=== PATIENT | male | born 1950 | race Caucasian/White ===

== ENCOUNTER 2017-10-22 15:36 | Emergency (ER) | END 2017-10-22 18:20 | disposition home or self-care (01) ==

== ENCOUNTER 2018-08-22 09:52 | Inpatient (IN) | payer OTHER ==
[~2018-08-22] VITALS: Ht 170.2 cm; Wt 78.6 kg
[~2018-08-22 09:52] MED LIST: LOSA25TA12 PO
[2018-08-22 09:55] VITALS: Ht 170.2 cm; Wt 78.6 kg
[2018-08-22] MEDS ORDERED: KETOROLAC 15 MG INJ IV STA ×2 (10:12→15:56)
[2018-08-22] MEDS ORDERED: IPRATROPIUM (NEB) 0.5 MG/2.5 ML AMP NEB STA (10:12)
[2018-08-22] MEDS ORDERED: ALBUTEROL 0.083% (NEB) 2.5 MG/3 ML AMP NEB STA (10:12)
[2018-08-22] MEDS ORDERED: LOSA100T15 PO (11:07)
[2018-08-22] MEDS ORDERED: ALBU18HF INHALATION (11:08)
[2018-08-22] MEDS ORDERED: AMLO-147 PO (11:08)
[2018-08-22] MEDS ORDERED: CEFTRIAXONE 1 GM/50 ML (PMX) 50 ML IVPB STA (13:07)
[2018-08-22] MEDS ORDERED: AZITHROMYCIN 500MG/NS (PMX) 250 ML IV STA (13:07)
--- NOTE | 2018-08-22 13:59 | ERD ---
ER Documentation Chief Complaint Chief Complaint cough, sob, chest pain x4 days HPI 67-year-old male who presents the emergency room with approximately 4 days of symptoms including chest pain shortness of breath and cough. The cough is slightly productive. The chest pain is sharp and worse with coughing. Nonpleuritic. No pressure like pain and no exertional pain. Subjective fevers are possibly noted but no documented temperature. Symptoms are moderate currently. ROS All systems reviewed and are negative except as per history of present illness. Medications Home Meds Reported Medications Albuterol Sulfate* (Ventolin HFA*) 18 Gm Hfa.aer.ad, 2 PUFF INHALATION Q4H, #1 INHALER 08/22/18 Amlodipine Besylate* (Amlodipine Besylate*) 10 Mg Tablet, 10 MG PO DAILY, #30 TAB 08/22/18 Losartan Potassium* (Losartan Potassium*) 100 Mg Tablet, 100 MG PO DAILY, TAB 08/22/18 Discontinued Reported Medications Losartan Potassium* (Losartan Potassium*) Unknown Strength Tablet, PO DAILY, TAB 10/22/17 Allergies Allergies: Coded Allergies: No Known Allergy (Unverified , 08/22/18) PMhx/Soc History of Surgery: No Anesthesia Reaction: No Hx Neurological Disorder: No Hx Respiratory Disorders: No Hx Cardiac Disorders: No Hx Psychiatric Problems: No Hx Miscellaneous Medical Probl: Yes (HTN) Hx Alcohol Use: Yes (social drinker) Hx Substance Use: No Hx Tobacco Use: No Smoking Status: Never smoker FmHx Family History: No diabetes Physical Exam Vitals Vital Signs Date Temp Pulse Resp B/P (MAP) Pulse Ox O2 O2 Flow FiO2 Time Delivery Rate 08/22/18 98.2 82 21 132/83 97 Room Air 13:28 (99) 08/22/18 100.0 99 18 135/82 98 Room Air 11:34 (99) 08/22/18 Nasal 3 10:32 Cannula 08/22/18 8.0 10:30 08/22/18 100 20 99 21 10:22 08/22/18 99.2 107 20 168/89 97 09:55 (115) Physical Exam General: Well developed, well nourished, no acute distress Head: Normocephalic, atraumatic. Eyes: Pupils equally reactive, EOM intact ENT: Moist mucous membranes Neck: Supple, no lymphadenopathy Respiratory: Scant wheezing bilaterally, no distress Cardiovascular: RRR, no murmurs, rubs, or gallops Abdominal: Soft, non-tender, non-distended, no peritoneal signs : Deferred MSK: No edema, no unilateral swelling, 5/5 strength Neurologic: Alert and oriented, moving all extremities, normal speech, no focal weakness, no cerebellar signs Skin: No rash Psych: Normal mood Result Diagram: 08/22/18 1032 08/22/18 1032 Results 24 hrs Laboratory Tests Test 08/22/18 10:32 White Blood Count 10.7 10^3/ul Red Blood Count 4.37 10^6/ul Hemoglobin 13.5 g/dl Hematocrit 40.5 % Mean Corpuscular Volume 92.7 fl Mean Corpuscular Hemoglobin 30.9 pg Mean Corpuscular Hemoglobin Concent 33.3 g/dl Red Cell Distribution Width 13.1 % Platelet Count 238 10^3/UL Mean Platelet Volume 9.9 fl Immature Granulocytes % 0.300 % Neutrophils % 73.4 % Lymphocytes % 13.0 % Monocytes % 12.1 % Eosinophils % 0.9 % Basophils % 0.3 % Nucleated Red Blood Cells % 0.0 /100WBC Immature Granulocytes # 0.030 10^3/ul Neutrophils # 7.9 10^3/ul Lymphocytes # 1.4 10^3/ul Monocytes # 1.3 10^3/ul Eosinophils # 0.1 10^3/ul Basophils # 0.0 10^3/ul Nucleated Red Blood Cells # 0.0 10^3/ul Sodium Level 138 mmol/L Potassium Level 3.7 mmol/L Chloride Level 102 mmol/L Carbon Dioxide Level 26 mmol/L Anion Gap 10 Blood Urea Nitrogen 10 mg/dl Creatinine 0.83 mg/dl Est Glomerular Filtrat Rate mL/min > 60 mL/min Glucose Level 178 mg/dl Calcium Level 9.2 mg/dl Troponin I 0.015 ng/ml B-Type Natriuretic Peptide 522 PG/ML Current Medications Medications Dose Sig/Gloria Start Time Status Last (Trade) Ordered Route PRN Stop Time Admin Dose Reason Admin Ketorolac 15 mg ONCE STAT 08/22/18 DC 08/22/18 Tromethamine IV 10:12 08/22/18 10:36 (Toradol) 10:14 Albuterol 2.5 mg ONCE STAT 08/22/18 DC 08/22/18 (Proventil NEB 10:12 08/22/18 10:20 0.083% (Neb)) 10:14 Ipratropium 0.5 mg ONCE STAT 08/22/18 DC 08/22/18 [place] NEB 10:12 08/22/18 10:20 (Atrovent 10:14 0.02% (Neb)) Azithromycin 250 ml @ ONCE STAT 08/22/18 250 mls/hr IV 13:07 08/22/18 14:06 Ceftriaxone 50 ml @ ONCE STAT 08/22/18 DC 08/22/18 Sodium 100 mls/hr IVPB 13:07 08/22/18 13:26 13:36 Ondansetron 4 mg ER BRIDGE 08/22/18 HCl (Zofran PRN IV 14:00 08/23/18 Inj) NAUSEA/VOMITI 13:59 NG 650 mg ER BRIDGE 08/22/18 Acetaminophen PRN PO 14:00 08/23/18 (Tylenol .MILD PAIN 13:59 Tab) 1-3 OR TEMP Procedures/MDM EKG, MONITORS, & DIAGNOSTIC IMAGING: EKG: I reviewed and interpreted a 12-lead EKG. Rhythm: Normal sinus rhythm ST Changes: No contiguous ST segment elevations T waves: No contiguous T wave inversions Impression:Left bundle branch block, no baseline CXR IMPRESSION: Mildly increased left mid lung infiltrate concerning for developing pneumonia. RPTAT: AADD LAB INTERPRETATION: I reviewed the laboratory testing and it shows no evidence of acute process MEDICAL DECISION MAKING: The patient presents with cough congestion and shortness of breath. He is wheezing on exam. The patient's presentation is concerning for possible viral versus bacterial lower respiratory tract infection and/or pneumonia. Lower concern for cardiac etiology though the patient has a left bundle branch block of unclear duration. No baseline for measurement. ER COURSE: * Diagnostic imaging is concerning for pneumonia. The patient still has slight increased work of breathing but is otherwise comfortable. The patient only has 1 out of 4 Sirs criteria. This is not consistent with sepsis. Blood cultures prior to ceftriaxone and azithromycin. Given the patient's age, left bundle branch block and comorbidities inpatient hospitalization is likely ne cessary. CONSULTATION: None DISPOSITION PLAN: Accepting care team and consultations: I discussed the current laboratory data, diagnostic imaging and emergency care provided. Admitting team: Dr. Bar Admitting team indication: Insurance directed Departure Diagnosis: Primary Impression: Community acquired pneumonia Laterality: unspecified laterality Qualified Codes: J18.9 - Pneumonia, unspecified organism Additional Impression: Left bundle branch block Condition: JOY Summesr MD Aug 22, 2018 13:59
[2018-08-22] MEDS ORDERED: ONDANSETRON 4 MG INJ IV PRN ×2 (14:00→16:30)
[2018-08-22] MEDS ORDERED: ACETAMINOPHEN 325 MG TAB PO PRN ×2 (14:00→16:30)
[2018-08-22] MEDS ORDERED: ALBUTEROL/IPRATROPIUM (NEB) 3 ML AMP HHN STA (15:55)
--- NOTE | 2018-08-22 15:58 | QN ---
Documentation Comment pt seen and examined MONIKA BERRIOS MD Aug 22, 2018 15:58
[2018-08-22] MEDS ORDERED: METHYLPREDNISOLONE 125 MG INJ IV ONE (16:00)
[2018-08-22] MEDS: ENOXAPARIN 40 MG/0.4 ML SYG SC SCH (16:20)
[2018-08-22] MEDS ORDERED: NACL 0.9% 3 ML SYG IV SCH (16:30)
[2018-08-22] MEDS ORDERED: ASPIRIN 81 MG TAB PO ONE (16:30)
[2018-08-22] MEDS ORDERED: MAGNESIUM HYDROXIDE 30ML CUP PO PRN (16:30)
[2018-08-22] MEDS ORDERED: HYDROCODONE/APAP (5/325) TAB PO PRN (16:30)
[2018-08-22] MEDS ORDERED: DOCUSATE SODIUM 100 MG CAP PO PRN (16:30)
--- NOTE | 2018-08-22 19:36 | HP ---
DATE OF ADMISSION: 08/22/2018 REASON FOR ADMISSION: Shortness of breath, cough, chest pain for last 4 days. HISTORY OF PRESENTING ILLNESS: This is a 67-year-old male with a past medical history of hypertensio n, obesity, presented to the emergency department after having a left-sided chest pain, shortness of breath and cough for the past 4 to 5 days. According to the patient, he started noticing some interm ittent left sharp chest pain for 15 days. 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 He has been having good exercise tolerance; however, for the last 15 days, he was noticin g every time he was breathing, taking a breath, he was having some intermittent left chest pains. Pa in would last for a few minutes going through the throat and to the back. The patient started feelin g cough, sore throat, shortness of breath, which was progressively getting worse and also with cough productive in nature which made him come to the emergency department. According to him, the whole evita dy has been hurting. The patient was also having subjective fevers at home. Denies any orthopnea, P ND, any lower extremity edema. The patient only takes Losartan at home. The patient was advised by the PCP to have a cardiology checkup. The patient denies any orthopnea, PND, any lower extremity aleksandar ma. On arrival to ED, vital signs show temperature 100.0, pulse 100, respirations 18, blood pressure 135/82, saturating 97% on 3 liters. The patient had labs, showed BMP within normal limit. BNP of 5 22. White count 10.7, hemoglobin 13.5, platelet count 238. Had a chest x-ray that showed mild incre ased left lung infiltrate for developing pneumonia. EKG showed left bundle branch block and patient received Toradol, Rocephin, azithromycin, albuterol, Atrovent and was admitted for further management . PAST MEDICAL HISTORY: Hypertension. MEDICATIONS: Taking at home Losartan. PAST SURGICAL HISTORY: None. SOCIAL HISTORY: Denies any history of smoking. Denies any history of alcohol, any drug use. Chastity guerrier lives at home with the family. FAMILY HISTORY: Significant for coronary artery disease in the father and the mother who in the age of 80s. REVIEW OF SYSTEMS: The patient complained of generalized body aches, shortness of breath, cough. So me left intermittent chest pain. Denies any orthopnea, PND, any lower extremity edema. Denies any h eadache, any blurry vision. Intermittently having some right low back pain. Denies any orthopnea, P ND, any lower extremity edema. Denies any urinary symptoms. PHYSICAL EXAMINATION: VITAL SIGNS: Temperature 100.0, pulse 99, respirations 18, blood pressure 135/82, saturating 98% on 3 liters. GENERAL: The patient is awake, alert, oriented, appears to be in mild distress secondary to respirat ory distress. HEENT: Normocephalic, atraumatic. Morbidly obese. Pupils round and reactive. NECK: Supple, no JVD. CHEST: Lungs wheezing, rhonchi. End expiratory rhonchi scattered appreciated. HEART: Regular rate and rhythm. No murmur, rub or gallop. ABDOMEN: Soft, distended, positive bowel sounds. EXTREMITIES: No edema. NEUROLOGIC: Nonfocal. DIAGNOSTIC DATA: White count is 10.7, hemoglobin 13.5, platelet count 238, BUN of 10, creatinine 0.8 3. EKG showed left bundle branch block. Chest x-ray showed mildly increased left basal infiltrate c oncerning for developing pneumonia. ASSESSMENT AND PLAN: This is a 67-year-old male who presented with: 1. Shortness of breath, weakness, fevers, cough, likely secondary to developing a left-sided pneumon ia/bronchospasm. 2. Chest pain could be secondary related to pneumonia; however, the patient also has a left bundle b ranch on EKG. No prior history. 3. Hypertension, controlled. 4. Obesity. 5. History of questionable asthma. PLAN: At this period of time, the patient will be admitted to [facility]. The patient will be on nebs, st eroids and also on antibiotics around the clock. We will also get serial EKG, troponin, echo. Cardi ology will be consulted. The patient will also be started on aspirin and statin. We will get a lipi d panel. Rest of the treatment will depend on the patient's hospitalization course. Dictated By: MONIKA MENDOZA/MARYLOU Conf#: [id number] DID#: [id number]
[2018-08-22 19:40] VITALS: PULSE 101
[2018-08-22 19:58] VITALS: BP 159/88; PULSE 98; RESP 19
[2018-08-22 20:00] VITALS: PULSE 97
[2018-08-22] MEDS: METHYLPREDNISOLONE 40 MG INJ IV SCH (21:56)
[2018-08-23] VITALS (10 sets, daily range): BP systolic 95–172; BP diastolic 75–94; PULSE 66–122; RESP 18–20
[2018-08-23] MEDS: ALBUTEROL/IPRATROPIUM (NEB) 3 ML AMP HHN SCH ×5 (04:16→19:42)
[2018-08-23] MEDS ORDERED: hydrALAzine 20 MG INJ IV PRN (04:30)
[2018-08-23] MEDS: PANTOPRAZOLE (EC) 40 MG TAB PO SCH (05:32)
[2018-08-23] MEDS: METHYLPREDNISOLONE 40 MG INJ IV SCH ×3 (05:32→21:05)
[2018-08-23] MEDS: ASPIRIN (EC) 81 MG TAB PO SCH (08:11)
[2018-08-23] MEDS: CEFTRIAXONE 1 GM/50 ML (PMX) 50 ML IVPB SCH (08:11)
[2018-08-23] MEDS: ENOXAPARIN 40 MG/0.4 ML SYG SC SCH (08:24)
[2018-08-23] MEDS: AZITHROMYCIN 500MG/NS (PMX) 250 ML IVPB SCH (10:12)
--- NOTE | 2018-08-23 13:57 | PN ---
Date/Time of Note Date/Time of Note DATE: 08/23/18 TIME: 13:55 Assessment/Plan VTE Prophylaxis Risk score (from Ns)>0 risk: 2 SCD applied (from Ns): Yes Pharmacological prophylaxis: NA/contraindicated Pharm contraindication: low risk/ambulating Lines/Catheters IV [facility] [place] Urinary Cath still in place: No Assessment/Plan Assessment/Plan PLAN: This is a 67-year-old male who presented with: 1. Shortness of breath, weakness, fevers, cough, likely secondary to developing a left-sided pneumonia/bronchospasm. 2. Chest pain could be secondary related to pneumonia; however, the patient also has a left bundle branch on EKG. No prior history. 3. Hypertension, controlled. 4. Obesity. 5. History of questionable asthma. 6 SIRS seondary to #1 7 Hypoxia sec to#1 Plan clinically improved today -Continue with nebs. -Decrease Solu-Medrol -Continue with Rocephin/azithromycin -Urine culture -Echo pending -Continue with aspirin statin -Pending cardiology consult Result Diagram: 08/22/18 1032 08/23/18 0708 Results 24hrs Laboratory Tests Test 08/22/18 16:00 08/22/18 16:15 08/22/18 21:51 08/23/18 07:08 Blood Gas Blood arterial Specimen Source Arterial Blood 08/22/2018 4:55:05 Date Drawn PM Arterial Blood 7.453 H pH (Temp corrected) Arterial Blood 34.2 L pCO2 (Temp correct) Arterial Blood 73.0 L pO2 (Temp corrected) Arterial Blood 23.4 HCO3 Arterial Blood 0.1 Base Excess Arterial Blood 95.5 Oxygen Saturatio n Tyler Test ACCEPTAB Arterial Blood Right Radial Gas Puncture Site Arterial 0.2 Blood Carboxyhem oglobin Arterial Blood 0.3 Methemoglobin Blood Gas A-a O2 35.8 H Differential Oxyhemoglobin 95.0 Percent Blood Gas 37.0 Temperature Blood Gas ROOM AIR Modality FiO2 21.0 Blood Gas MDA Notified Whom Blood Gas 08/22/2018 4:58:38 Notified Time PM Urine Color MELYSSA Urine Clarity SLIGHTLY CLOUDY A Urine pH 5.0 Urine Specific 1.032 H Eldred Urine Ketones TRACE A Urine Nitrite NEGATIVE Urine Bilirubin 1+ H Urine 2+ H Urobilinogen Urine Leukocyte NEGATIVE Esterase Urine 5 Microscopic RBC Urine 2 Microscopic WBC Urine Bacteria FEW A Urine Mucus MANY A Urine Hemoglobin NEGATIVE Urine Glucose NEGATIVE Urine Total 2+ H Protein Creatine Kinase 707 H 747 H Creatine Kinase 0.3 0.3 Index Creatinine 1.81 2.27 Kinase MB (Mass) Troponin I < 0.012 0.013 Sodium Level 139 Potassium Level 3.7 Chloride Level 102 Carbon Dioxide 26 Level Anion Gap 11 Blood Urea 16 Nitrogen Creatinine 0.71 Est Glomerular > 60 Filtrat Rate mL/min Glucose Level 201 Hemoglobin A1c 6.3 H Calcium Level 9.5 Phosphorus Level 4.0 Magnesium Level 2.0 Triglycerides 144 Level Cholesterol 160 Level LDL Cholesterol, 97 Calculated HDL Cholesterol 34 Cholesterol/HDL 4.7 Ratio Free Thyroxine 2.73 Index Thyroxine (T4) 6.7 Triiodothyronine 40.7 H (T3) Uptake Subjective 24 Hr Interval Summary Free Text/Dictation Feels better today. Still has some lower abdomen pain Exam/Review of Systems Exam Vitals Vital Signs Date Temp Pulse Resp B/P (MAP) Pulse Ox O2 O2 Flow FiO2 Time Delivery Rate 08/23/18 86 18 96 Nasal 2.0 13:49 Cannula 08/23/18 97.8 164/90 11:54 (114) 08/23/18 21 04:16 Exam GENERAL: The patient is awake, alert, oriented, appears to be in mild distress secondary to respiratory distress. HEENT: Normocephalic, atraumatic. Morbidly obese. Pupils round and reactive. NECK: Supple, no JVD. CHEST: Lungs wheezing, rhonchi. End expiratory rhonchi much less than yesterday HEART: Regular rate and rhythm. No murmur, rub or gallop. ABDOMEN: Soft, distended, positive bowel sounds. EXTREMITIES: No edema. NEUROLOGIC: Nonfocal. Results Results 24hrs Laboratory Tests Test 08/22/18 16:00 08/22/18 16:15 08/22/18 21:51 08/23/18 07:08 Blood Gas Blood arterial Specimen Source Arterial Blood 08/22/2018 4:55:05 Date Drawn PM Arterial Blood 7.453 H pH (Temp corrected) Arterial Blood 34.2 L pCO2 (Temp correct) Arterial Blood 73.0 L pO2 (Temp corrected) Arterial Blood 23.4 HCO3 Arterial Blood 0.1 Base Excess Arterial Blood 95.5 Oxygen Saturatio n Tyler Test ACCEPTAB Arterial Blood Right Radial Gas Puncture Site Arterial 0.2 Blood Carboxyhem oglobin Arterial Blood 0.3 Methemoglobin Blood Gas A-a O2 35.8 H Differential Oxyhemoglobin 95.0 Percent Blood Gas 37.0 Temperature Blood Gas ROOM AIR Modality FiO2 21.0 Blood Gas MDA Notified Whom Blood Gas 08/22/2018 4:58:38 Notified Time PM Urine Color MELYSSA Urine Clarity SLIGHTLY CLOUDY A Urine pH 5.0 Urine Specific 1.032 H Eldred Urine Ketones TRACE A Urine Nitrite NEGATIVE Urine Bilirubin 1+ H Urine 2+ H Urobilinogen Urine Leukocyte NEGATIVE Esterase Urine 5 Microscopic RBC Urine 2 Microscopic WBC Urine Bacteria FEW A Urine Mucus MANY A Urine Hemoglobin NEGATIVE Urine Glucose NEGATIVE Urine Total 2+ H Protein Creatine Kinase 707 H 747 H Creatine Kinase 0.3 0.3 Index Creatinine 1.81 2.27 Kinase MB (Mass) Troponin I < 0.012 0.013 Sodium Level 139 Potassium Level 3.7 Chloride Level 102 Carbon Dioxide 26 Level Anion Gap 11 Blood Urea 16 Nitrogen Creatinine 0.71 Est Glomerular > 60 Filtrat Rate mL/min Glucose Level 201 Hemoglobin A1c 6.3 H Calcium Level 9.5 Phosphorus Level 4.0 Magnesium Level 2.0 Triglycerides 144 Level Cholesterol 160 Level LDL Cholesterol, 97 Calculated HDL Cholesterol 34 Cholesterol/HDL 4.7 Ratio Free Thyroxine 2.73 Index Thyroxine (T4) 6.7 Triiodothyronine 40.7 H (T3) Uptake Medications Medication Current Medications IV Flush (NS 3 ml) 3 ml PER PROTOCOL IV ; Start 08/22/18 at 16:30 Ondansetron HCl (Zofran Inj) 4 mg Q6H PRN IV NAUSEA/VOMITING; Start 08/22/18 at 16:30 Acetaminophen (Tylenol Tab) 650 mg Q6H PRN PO .PAIN 1-3 OR TEMP; Start 08/22/18 at 16:30 Acetaminophen/ Hydrocodone Bitart ([place] (5/325)) 1 tab Q6H PRN PO .MOD PAIN 4- 6 Last administered on 08/23/18at 00:26; Admin Dose 1 TAB; Start 08/22/18 at 16:30 Docusate Sodium (Colace) 100 mg Q12H PRN PO .CONSTIPATION; Start 08/22/18 at 16:30 Magnesium Hydroxide (Milk Of Mag) 30 ml DAILY PRN PO .CONSTIPATION; Start 08/22/18 at 16:30 Pantoprazole (Protonix Tab) 40 mg DAILY@06 PO Last administered on 08/23/18 05:32; Admin Dose 40 MG; Start 08/23/18 at 06:00 Enoxaparin Sodium (Lovenox) 40 mg DAILY SC Last administered on 08/23/18 08:24; Admin Dose 40 MG; Start 08/22/18 at 16:30 Ceftriaxone Sodium 50 ml @ 100 mls/hr DAILY IVPB Last administered on 08/23/18 08:11; Admin Dose 100 MLS/HR; Start 08/23/18 at 09:00 Azithromycin 250 ml @ 250 mls/hr DAILY IVPB Last administered on 08/23/18 10:12; Admin Dose 250 MLS/HR; Start 08/23/18 at 09:00 Methylprednisolone Sodium Succinate (Solu-Medrol) 40 mg Q8 IV Last administered on 08/23/18 05:32; Admin Dose 40 MG; Start 08/22/18 at 22:00 Aspirin (Halfprin) 81 mg DAILY PO Last administered on 08/23/18 08:11; Admin Dose 81 MG; Start 08/23/18 at 09:00 Albuterol/ Ipratropium (Duoneb) 3 ml Q4H RESP THERAPY HHN Last administered on 08/23/18 13:49; Admin Dose 3 ML; Start 08/23/18 at 05:00 Hydralazine HCl (Apresoline) 5 mg Q4H PRN IV ELEVATED SYSTOLIC BP; Start 08/23/18 at 04:30 MONIKA BERRIOS MD Aug 23, 2018 13:57
[2018-08-23] MEDS ORDERED: NITROGLYCERIN (SL) 0.4 MG TAB SL PRN (15:30)
--- NOTE | 2018-08-23 16:28 | RADRPT ---
Echocardiogram Report Patient Name: BOBBY TORREPatient ID: [id number] : 1950 (67y 11m)Study Date: 08/23/2018 8:19:48 AM Gender: MAccession #: [id number] Tech: LE Location: [facility] Ref.Physician: MONIKA BERRIOS Height(Cm): BSA: Weight(Kg): Quality: GoodOrder Physician: MONIKA BERRIOS Account #: Procedures: Echocardiographic Report: Transthoracic echocardiogram with complete 2D, M-Mode, and doppler examination. Indications: Abnormal EKG. Measurements: 2D/M Mode Doppler Measurement Value Normal Range Measurement Value Normal Range LVIDd 2D 4.9 [ 4.2 - 5.8 ] cm AV Mean Mathew 1.1 [ 70.0 - 90.0 ] cm/sec LVIDs 2D 3.5 [ 2.5 - 4.0 ] cm AV Mean PG 5.0 [ 2.0 - 4.0 ] mmHg LVPWd 2D 1.1 [ 0.6 - 1.0 ] cm AV Peak Mathew 1.5 [ 100.0 - 170.0 ] cm/sec IVSd 2D 1.1 [ 0.6 - 1.0 ] cm AV Peak PG 9.0 [ 2.0 - 9.0 ] mmHg EF 2D 55.1 [ 52.0 - 72.0 ] percent AV VTI 29.0 cm LVOT Diam 2.0 [ 2.3 - 2.9 ] cm LVOT Peak Mathew 1.1 [ 70.0 - 110.0 ] cm/sec LVOT Peak PG 5.0 [ 2.0 - 6.0 ] mmHg MV E Peak Mathew 0.7 [ 60.0 - 130.0 ] cm/sec MV A Peak Mathew 1.0 [ 100.0 - 120.0 ] cm/sec MV E/A 0.7 [ 0.8 - 1.5 ] ratio MV Decel Time 296 [ 104 - 258 ] msec Lat E` Mathew 0.1 [ 10.0 - 15.0 ] cm/sec Lateral E/E` 11.5 [ 1.0 - 2.0 ] ratio Med E` Mathew 0.1 cm/sec MV E/A 0.7 [ 0.8 - 1.5 ] ratio TR Peak Mathew 2.6 [ 100.0 - 280.0 ] cm/sec TR Peak PG 27.0 mmHg PV Peak Mathew 0.8 [ 40.0 - 80.0 ] cm/sec PV Peak PG 3.0 mmHg Findings: Left Ventricle: Lower limits of normal systolic function. Normal left ventricular cavity size. Normal left ventricular wall thickness. Ejection fraction is visually estimated at 50-55 %. Tissue Doppler/Mitral Doppler indices are consistent with impaired relaxation (Stage I diastolic dysfunction). Right Ventricle: Normal right ventricular size. Normal right ventricular systolic function. Left Atrium: The left atrium is normal in size. Right Atrium: The right atrium is normal in size. Mitral Valve: Normal appearance of the mitral valve. Mild to moderate mitral valve regurgitation. Aortic Valve: Normal appearance of the aortic valve. No significant aortic stenosis or insufficiency. Tricuspid Valve: Normal appearance of the tricuspid valve. The estimated Peak RVSP is 30 mmHg. There is trace tricuspid regurgitation. Pulmonic Valve: Normal pulmonic valve appearance. There is trace pulmonic regurgitation. Pericardium: Normal pericardium with no significant pericardial effusion. Aorta: Normal aortic root. IVC: Normal size and normal respiratory collapse consistent with normal right atrial pressure. Conclusions: Lower limits of normal systolic function. Normal left ventricular cavity size. Normal left ventricular wall thickness. Ejection fraction is visually estimated at 50-55 %. Tissue Doppler/Mitral Doppler indices are consistent with impaired relaxation (Stage I diastolic dysfunction). Normal appearance of the mitral valve. Mild to moderate mitral valve regurgitation. Normal appearance of the tricuspid valve. The estimated Peak RVSP is 30 mmHg. There is trace tricuspid regurgitation. Normal pulmonic valve appearance. There is trace pulmonic regurgitation. n. Electronically Signed By: Leander Reeves 2018-08-23 16:28:17 PDT
--- NOTE | 2018-08-23 16:35 | RADRPT ---
Vent Rate: 67 bpm RR Interval: 896 msec MN Interval: 191 msec QRS Duration: 160 msec QT Interval: 458 msec QTC Interval: 484 msec P-R-T [place]: 68 - 44 - 125 degrees Sinus rhythm...normal P axis, V-rate 50- 99 Left bundle branch block...QRSd>120, broad/notched R ST elevation secondary to IVCD...Multiple VCG criteria Electronically Signed By: Leander Reeves
--- NOTE | 2018-08-23 20:25 | CONS ---
DATE OF ADMISSION: 08/22/2018 DATE OF CONSULTATION: 08/23/2018 REASON FOR CONSULTATION: Chest pain, left bundle branch block, assess for acute coronary syndrome. REQUESTING PHYSICIAN: Dr. Mer Bar. HISTORY OF PRESENT ILLNESS: Mr. Alysha Solano is a 67-year-old male with history of hypertension, obesity, who presented with complaints of shortness of breath ongoing for 15 days perpateint with associated cough which has been dry for the last 3 days and additionally some intermittent left-sided chest pain, both at rest but also worse with ambulation described as a sharp pain. Upon arrival, temperature 99.2, blood pressure 160/89, pulse 107/20, sat 97%. The patient's labs were notable for sodium 138, potassium 3.7, creatinine of 0.83. BNP of 522. Additionally, the patient had a positive UA. The patient's chest x-ray revealed mild increased left mid lung infiltrate concerning for developing pneumonia. The patient's electrocardiogram revealed left bundle branch block, secondary repolarization abnormalities. The patient subsequently has been admitted to the floor and since admit to the floor continues to have cough. The patient was started on ceftriaxone and azithromycin given aspirin for steroids, bronchodilators. The patient has had a total of 3 negative troponins, ruling out acute myocardial infarction. PAST MEDICAL HISTORY: As above in HPI. MEDICATIONS CURRENTLY IN HOSPITAL: 1. Ceftriaxone. 2. Azithromycin. 3. Aspirin 81 mg daily. 4. Protonix 40 mg daily. 5. DuoNeb. 6. Hydralazine IV push p.r.n. 7. Solu-Medrol 40 mg IV q.8. 8. Zofran p.r.n. 9. Tylenol p.r.n. 10. Atkins p.r.n. 11. Colace p.r.n. 12. Milk of magnesia. 13. Lovenox subcutaneously daily. ALLERGIES: NO KNOWN DRUG ALLERGIES. SOCIAL HISTORY: No current tobacco, social ETOH, no illicit drug use. FAMILY HISTORY: No history of sudden cardiac or early CAD. REVIEW OF SYSTEMS: As above in HPI. CONSTITUTIONAL: No fevers, chills. PULMONARY: Positive shortness of breath, positive cough. CARDIOVASCULAR: Intermittent chest pain. GASTROINTESTINAL: No vomiting. GENITOURINARY: No hematuria. MUSCULOSKELETAL: Degenerative joint disease. PSYCHIATRIC: The patient denies depression. NEUROLOGIC: No documented history of CVA. PHYSICAL EXAMINATION VITAL SIGNS: Temperature 97.7, blood pressure 144/75, pulse 100, respiratory rate 20, satting 97%. GENERAL: The patient is alert, awake, complaining of cough. NECK: JVP approximately 8 cm water. CHEST: Mild expiratory wheezes. HEART: Regular rate and rhythm. Normal S1, S2, I/ systolic murmur, nondisplaced PMI. ABDOMEN: Positive bowel sounds, soft. EXTREMITIES: No significant pitting edema, 1+ pulses bilateral posterior tibial. LABORATORY DATA: Most recently from today, sodium 139, potassium 3.7, creatinine 0.7, BUN 16, LDL 97, HDL 34. White blood cell count of 10.7 from the 4th, hemoglobin 13.5, platelet count 238. IMAGING STUDIES: As above in HPI with chest x-ray from today revealing calcified aorta consistent with atherosclerotic disease, mild degenerative changes in thoracic spine, improving left mid lung infiltrate and atelectasis. ELECTROCARDIOGRAM: Reveals a sinus rhythm, left bundle block secondary to repolarization abnormalities. IMPRESSION: 1. Chest pain, assess for acute coronary syndrome. 2. Left bundle branch block. Assess for acute coronary syndrome. 3. Hypertension, uncontrolled, at this time labile. 4. Upper respiratory infection with probable pneumonia. 5. Anemia, mild. RECOMMENDATIONS: 1. At this time, we would maintain the patient on telemetry monitoring to follow rhythm and rate control closely. 2. We would continue the patient's current aspirin for prophylaxis against cardiovascular events. 3. Would place patient on standing antihypertensives to improve the patient's systolic blood pressure control. 4. We will check a 2D echo for this patient's ejection fraction, wall motion, rule out any major valve abnormalities. 5. Continue the patient's baseline steroids, bronchodilators and antibiotics and follow up culture data including likely sputum culture to be checked. 5. Follow up the patient's blood culture data. 6. The patient had negative troponins x3. Does have intermittent chest pain and will additionally place the patient in for a cardiac stress test to take place first thing in the morning to further assess possibility of significant obstructive coronary artery disease lending to symptoms of chest pain and left bundle branch block findings on EKG. Thank you for allowing me to take part in the care of this patient. I will continue to follow him very closely with you with further recommendations to be made as the patient progresses through his inpatient hospital clinical course. Dictated By: ELENO ANN/MARYLOU Conf#: [id number] DID#: [id number] CC: MER BAR;*EndCC* MTDD
[2018-08-23] MEDS: NIFEdipine (XL) 30 MG TAB PO SCH (21:05)
[2018-08-24] VITALS (11 sets, daily range): BP systolic 128–151; BP diastolic 69–81; PULSE 19–99; RESP 18–20
[2018-08-24] MEDS: ALBUTEROL/IPRATROPIUM (NEB) 3 ML AMP HHN SCH ×6 (01:07→20:09)
[2018-08-24] MEDS: GUAIFENESIN/DM 5ML CUP PO PRN ×2 (03:04→21:36)
[2018-08-24] MEDS: PANTOPRAZOLE (EC) 40 MG TAB PO SCH (05:52)
[2018-08-24] MEDS: METHYLPREDNISOLONE 40 MG INJ IV SCH ×3 (05:52→21:36)
[2018-08-24] MEDS: ASPIRIN (EC) 81 MG TAB PO SCH (08:34)
[2018-08-24] MEDS: CEFTRIAXONE 1 GM/50 ML (PMX) 50 ML IVPB SCH (08:34)
[2018-08-24] MEDS: NIFEdipine (XL) 30 MG TAB PO SCH ×2 (08:35→21:36)
[2018-08-24] MEDS: ENOXAPARIN 40 MG/0.4 ML SYG SC SCH (08:46)
[2018-08-24] MEDS: AZITHROMYCIN 500MG/NS (PMX) 250 ML IVPB SCH (09:47)
[2018-08-24] MEDS ORDERED: REGADENOSON 0.4 MG/5 ML SYG ONE (10:43)
--- NOTE | 2018-08-24 11:37 | CONS ---
Assessment/Plan Assessment/Plan Hospital Course (Demo Recall) IMPRESSION: 1. Chest pain, assess for acute coronary syndrome. 2. Left bundle branch block. Assess for acute coronary syndrome. 3. Hypertension, uncontrolled, at this time labile. 4. Upper respiratory infection with probable pneumonia. 5. Anemia, mild. Recc: -Tele -Continue procardia XL -Continue asa -Contiinue steroids/bronchodilators -Lexiscan stress test today Consultation Date/Type/Reason Admit Date/Time Aug 22, 2018 at 13:48 Initial Consult Date 08/24/18 Type of Consult Cardiology Reason for Consultation Chest pain Requesting Provider: MONIKA BERRIOS MD Date/Time of Note DATE: 08/24/18 TIME: 11:32 Exam/Review of Systems Vital Signs Vitals Vital Signs Date Temp Pulse Resp B/P (MAP) Pulse Ox O2 O2 Flow FiO2 Time Delivery Rate 08/24/18 97 2.0 09:12 08/24/18 82 16 Nasal 09:11 Cannula 08/24/18 98.1 136/72 07:36 (93) 08/24/18 28 04:33 Intake and Output 08/23/18 08/23/18 08/24/18 1515:00 23:00 07:00 IntakeIntake Total 50 ml 1210 ml OutputOutput Total 300 ml BalanceBalance 50 ml 910 ml Exam Exam Review of Systems: CONSTITUTIONAL: No fevers, chills. PULMONARY: No sob CARDIOVASCULAR:intermittent chest pain GASTROINTESTINAL: No nausea/vomiting. GENITOURINARY: No hematuria/dysuria. MUSCULOSKELETAL: No myagias/arthalgias. PSYCHIATRIC: The patient denies depression. NEUROLOGIC: No weakness Constitutional: alert, oriented Psych: no complaints Head: normocephalic ENMT: mucosa pink and moist Neck: supple, jvd (9 cm water) Respiratory: diminished breath sounds Cardiovascular: regular rate and rhythm Gastrointestinal: soft, non-tender Musculoskeletal: muscle tone (normal) Extremities: edema (none) Neurological: other (No focal deficits) Labs Result Diagram: 08/24/18 0634 08/23/18 0708 Results 24hrs Laboratory Tests Test 08/24/18 06:34 White Blood Count 17.9 #H Red Blood Count 4.37 L Hemoglobin 13.7 L Hematocrit 41.5 L Mean Corpuscular Volume 95.0 Mean Corpuscular Hemoglobin 31.4 Mean Corpuscular Hemoglobin Concent 33.0 Red Cell Distribution Width 13.2 Platelet Count 350 # Mean Platelet Volume 10.3 Immature Granulocytes % 0.400 Neutrophils % 86.2 H Lymphocytes % 8.7 L Monocytes % 4.6 Eosinophils % 0.0 Basophils % 0.1 Nucleated Red Blood Cells % 0.0 Immature Granulocytes # 0.080 H Neutrophils # 15.4 H Lymphocytes # 1.6 Monocytes # 0.8 Eosinophils # 0.0 Basophils # 0.0 Nucleated Red Blood Cells # 0.0 Troponin I < 0.012 Triglycerides Level 140 Cholesterol Level 192 LDL Cholesterol, Calculated 123 HDL Cholesterol 41 Cholesterol/HDL Ratio 4.6 Medications Medications Current Medications IV Flush (NS 3 ml) 3 ml PER PROTOCOL IV ; Start 08/22/18 at 16:30 Ondansetron HCl (Zofran Inj) 4 mg Q6H PRN IV NAUSEA/VOMITING; Start 08/22/18 at 16:30 Acetaminophen (Tylenol Tab) 650 mg Q6H PRN PO .PAIN 1-3 OR TEMP; Start 08/22/18 at 16:30 Acetaminophen/ Hydrocodone Bitart ([place] (5/325)) 1 tab Q6H PRN PO .MOD PAIN 4- 6 Last administered on 08/23/18at 00:26; Admin Dose 1 TAB; Start 08/22/18 at 16:30 Docusate Sodium (Colace) 100 mg Q12H PRN PO .CONSTIPATION; Start 08/22/18 at 16:30 Magnesium Hydroxide (Milk Of Mag) 30 ml DAILY PRN PO .CONSTIPATION; Start 08/22/18 at 16:30 Pantoprazole (Protonix Tab) 40 mg DAILY@06 PO Last administered on 08/24/18at 05:52; Admin Dose 40 MG; Start 08/23/18 at 06:00 Enoxaparin Sodium (Lovenox) 40 mg DAILY SC Last administered on 08/24/18 08:46; Admin Dose 40 MG; Start 08/22/18 at 16:30 Ceftriaxone Sodium 50 ml @ 100 mls/hr DAILY IVPB Last administered on 08/24/18at 08:34; Admin Dose 100 MLS/HR; Start 08/23/18 at 09:00 Azithromycin 250 ml @ 250 mls/hr DAILY IVPB Last administered on 08/24/18at 09:47; Admin Dose 250 MLS/HR; Start 08/23/18 at 09:00 Methylprednisolone Sodium Succinate (Solu-Medrol) 40 mg Q8 IV Last administered on 08/24/18 05:52; Admin Dose 40 MG; Start 08/22/18 at 22:00 Aspirin (Halfprin) 81 mg DAILY PO Last administered on 08/24/18 08:34; Admin Dose 81 MG; Start 08/23/18 at 09:00 Albuterol/ Ipratropium (Duoneb) 3 ml Q4H RESP THERAPY HHN Last administered on 08/24/18 09:08; Admin Dose 3 ML; Start 08/23/18 at 05:00 Hydralazine HCl (Apresoline) 5 mg Q4H PRN IV ELEVATED SYSTOLIC BP; Start 08/23/18 at 04:30 Guaifenesin/ Dextromethorphan (Robitussin Dm Liquid Cup) 10 ml Q4H PRN PO COUGH Last administered on 08/24/18at 03:04; Admin Dose 10 ML; Start 08/23/18 at 15:00 Nifedipine (Procardia Xl) 30 mg BID PO Last administered on 08/24/18at 08:35; Admin Dose 30 MG; Start 08/23/18 at 21:00 Nitroglycerin (Nitroglycerin (Sl Tab) 0.4 Mg) 1 tab Q5M PRN SL ANGINA; Start 08/23/18 at 15:30 ELENO MALLOY Aug 24, 2018 11:37
--- NOTE | 2018-08-24 14:22 | RADRPT ---
Vent Rate: 83 bpm RR Interval: 724 msec ID Interval: 169 msec QRS Duration: 151 msec QT Interval: 419 msec QTC Interval: 492 msec P-R-T [place]: 41 - 47 - 174 degrees Sinus rhythm...normal P axis, V-rate 50- 99 Left bundle branch block...QRSd>120, broad/notched R ST elevation secondary to IVCD...Multiple VCG criteria Electronically Signed By: Leander Reeves
--- NOTE | 2018-08-24 15:46 | PN ---
Date/Time of Note Date/Time of Note DATE: 08/24/18 TIME: 15:41 Assessment/Plan VTE Prophylaxis Risk score (from Ns)>0 risk: 2 SCD applied (from Ns): Yes Pharmacological prophylaxis: NA/contraindicated Pharm contraindication: low risk/ambulating Lines/Catheters [facility] Saline Lock Urinary Cath still in place: No Assessment/Plan Assessment/Plan ssessment/Plan PLAN: This is a 67-year-old male who presented with: 1. Shortness of breath, weakness, fevers, cough, likely secondary to developing a left-sided pneumonia/bronchospasm. 2. Chest pain could be secondary related to pneumonia; however, the patient also has a left bundle branch on EKG. No prior history. 3. Hypertension, controlled. 4. Obesity. 5. History of questionable asthma. 6 SIRS seondary to #1 7 Hypoxia sec to#1 8 HTN Plan clinically improved today -Continue with nebs. -CW Solu-Medrol - CW ASA /NIFEDIPINE - Lexiscan results pending today -Continue with Rocephin/azithromycin -Echo reviewed - Result Diagram: 08/24/18 0634 08/23/18 0708 Results 24hrs Laboratory Tests Test 08/24/18 06:34 White Blood Count 17.9 #H Red Blood Count 4.37 L Hemoglobin 13.7 L Hematocrit 41.5 L Mean Corpuscular Volume 95.0 Mean Corpuscular Hemoglobin 31.4 Mean Corpuscular Hemoglobin Concent 33.0 Red Cell Distribution Width 13.2 Platelet Count 350 # Mean Platelet Volume 10.3 Immature Granulocytes % 0.400 Neutrophils % 86.2 H Lymphocytes % 8.7 L Monocytes % 4.6 Eosinophils % 0.0 Basophils % 0.1 Nucleated Red Blood Cells % 0.0 Immature Granulocytes # 0.080 H Neutrophils # 15.4 H Lymphocytes # 1.6 Monocytes # 0.8 Eosinophils # 0.0 Basophils # 0.0 Nucleated Red Blood Cells # 0.0 Troponin I < 0.012 Triglycerides Level 140 Cholesterol Level 192 LDL Cholesterol, Calculated 123 HDL Cholesterol 41 Cholesterol/HDL Ratio 4.6 Subjective 24 Hr Interval Summary Free Text/Dictation Patient having cough still Lexiscan today Exam/Review of Systems Exam Vitals Vital Signs Date Temp Pulse Resp B/P (MAP) Pulse Ox O2 O2 Flow FiO2 Time Delivery Rate 08/24/18 98.1 99 20 128/69 94 Room Air 15:12 (88) 08/24/18 21 14:22 08/24/18 3.0 13:08 Intake and Output 08/23/18 08/23/18 08/24/18 1515:00 23:00 07:00 IntakeIntake Total 50 ml 1210 ml OutputOutput Total 300 ml BalanceBalance 50 ml 910 ml Exam GENERAL: The patient is awake, alert, oriented, appears to be in mild distress secondary to respiratory distress. HEENT: Normocephalic, atraumatic. Morbidly obese. Pupils round and reactive. NECK: Supple, no JVD. CHEST: Lungs wheezing, rhonchi. End expiratory rhonchi much less than yesterday HEART: Regular rate and rhythm. No murmur, rub or gallop. ABDOMEN: Soft, distended, positive bowel sounds. EXTREMITIES: No edema. NEUROLOGIC: Nonfocal. Results Results Results 24hrs Laboratory Tests Test 08/24/18 06:34 White Blood Count 17.9 #H Red Blood Count 4.37 L Hemoglobin 13.7 L Hematocrit 41.5 L Mean Corpuscular Volume 95.0 Mean Corpuscular Hemoglobin 31.4 Mean Corpuscular Hemoglobin Concent 33.0 Red Cell Distribution Width 13.2 Platelet Count 350 # Mean Platelet Volume 10.3 Immature Granulocytes % 0.400 Neutrophils % 86.2 H Lymphocytes % 8.7 L Monocytes % 4.6 Eosinophils % 0.0 Basophils % 0.1 Nucleated Red Blood Cells % 0.0 Immature Granulocytes # 0.080 H Neutrophils # 15.4 H Lymphocytes # 1.6 Monocytes # 0.8 Eosinophils # 0.0 Basophils # 0.0 Nucleated Red Blood Cells # 0.0 Troponin I < 0.012 Triglycerides Level 140 Cholesterol Level 192 LDL Cholesterol, Calculated 123 HDL Cholesterol 41 Cholesterol/HDL Ratio 4.6 Medications Medication Current Medications IV Flush (NS 3 ml) 3 ml PER PROTOCOL IV ; Start 08/22/18 at 16:30 Ondansetron HCl (Zofran Inj) 4 mg Q6H PRN IV NAUSEA/VOMITING; Start 08/22/18 at 16:30 Acetaminophen (Tylenol Tab) 650 mg Q6H PRN PO .PAIN 1-3 OR TEMP; Start 08/22/18 at 16:30 Acetaminophen/ Hydrocodone Bitart ([place] (5/325)) 1 tab Q6H PRN PO .MOD PAIN 4- 6 Last administered on 08/23/18 00:26; Admin Dose 1 TAB; Start 08/22/18 at 16:30 Docusate Sodium (Colace) 100 mg Q12H PRN PO .CONSTIPATION; Start 08/22/18 at 16:30 Magnesium Hydroxide (Milk Of Mag) 30 ml DAILY PRN PO .CONSTIPATION; Start 08/22/18 at 16:30 Pantoprazole (Protonix Tab) 40 mg DAILY@06 PO Last administered on 08/24/18 05:52; Admin Dose 40 MG; Start 08/23/18 at 06:00 Enoxaparin Sodium (Lovenox) 40 mg DAILY SC Last administered on 08/24/18 08:46; Admin Dose 40 MG; Start 08/22/18 at 16:30 Ceftriaxone Sodium 50 ml @ 100 mls/hr DAILY IVPB Last administered on 08/24/18 08:34; Admin Dose 100 MLS/HR; Start 08/23/18 at 09:00 Azithromycin 250 ml @ 250 mls/hr DAILY IVPB Last administered on 08/24/18 09:47; Admin Dose 250 MLS/HR; Start 08/23/18 at 09:00 Methylprednisolone Sodium Succinate (Solu-Medrol) 40 mg Q8 IV Last administered on 08/24/18 13:41; Admin Dose 40 MG; Start 08/22/18 at 22:00 Aspirin (Halfprin) 81 mg DAILY PO Last administered on 08/24/18 08:34; Admin Dose 81 MG; Start 08/23/18 at 09:00 Albuterol/ Ipratropium (Duoneb) 3 ml Q4H RESP THERAPY HHN Last administered on 08/24/18 14:18; Admin Dose 3 ML; Start 08/23/18 at 05:00 Hydralazine HCl (Apresoline) 5 mg Q4H PRN IV ELEVATED SYSTOLIC BP; Start 08/23/18 at 04:30 Guaifenesin/ Dextromethorphan (Robitussin Dm Liquid Cup) 10 ml Q4H PRN PO COUGH Last administered on 08/24/18 03:04; Admin Dose 10 ML; Start 08/23/18 at 15:00 Nifedipine (Procardia Xl) 30 mg BID PO Last administered on 08/24/18at 08:35; Admin Dose 30 MG; Start 08/23/18 at 21:00 Nitroglycerin (Nitroglycerin (Sl Tab) 0.4 Mg) 1 tab Q5M PRN SL ANGINA; Start 08/23/18 at 15:30 MONIKA BERRIOS MD Aug 24, 2018 15:45
--- NOTE | 2018-08-24 16:03 | CARRPT ---
DATE OF PROCEDURE: 08/24/2018 TYPE OF PROCEDURE: Lexiscan Cardiolite stress test, electrocardiogram portion. INDICATION: Chest pain, assess for ischemia. BASELINE VITAL SIGNS AND ELECTROCARDIOGRAM: Pulse of 80, blood pressure 120/80. Electrocardiogram r eveals sinus rhythm and a rate of 89 with very frequent PACs, left bundle block, secondary repolariza tion abnormalities. PROCEDURE IN DETAILS: The patient underwent standard Lexiscan infusion protocol over 10 seconds foll owed by radiolabeled tracer. The patient's test was stopped due to completion of protocol. Maximal achieved blood pressure during the test was 144/88. Maximum heart rate during the test was 110. ELECTROCARDIOGRAM FINDINGS: The patient did not develop any new Lexiscan-induced ST or T-wave change s from baseline abnormalities with frequent PACs throughout the procedure. SYMPTOMS: The patient had no complaints of chest pain or shortness of breath during stress testing. IMPRESSION: 1. No Lexiscan-induced ST or T-wave changes from baseline abnormalities diagnostic of cardiac ischem ia. 2. No complaints of chest pain or shortness of breath during stress testing. 3. Positive premature atrial contractions during stress testing. No premature ventricular contracti ons during stress testing. 4. Report of nuclear images to follow in separate dictation. Dictated By: ELENO ANN/MARYLOU Conf#: [id number] DID#: [id number] CC: MONIKA BERRIOS;*EndCC*
[2018-08-25] VITALS (36 sets, daily range): BP systolic 124–153; BP diastolic 65–96; PULSE 74–96; RESP 14–25
[2018-08-25] MEDS: ALBUTEROL/IPRATROPIUM (NEB) 3 ML AMP HHN SCH ×6 (01:19→20:58)
[2018-08-25] MEDS: PANTOPRAZOLE (EC) 40 MG TAB PO SCH (06:15)
[2018-08-25] MEDS: METHYLPREDNISOLONE 40 MG INJ IV SCH ×2 (06:15→20:22)
[2018-08-25] MEDS: GUAIFENESIN/DM 5ML CUP PO PRN ×2 (06:18→07:55)
[2018-08-25] MEDS: NIFEdipine (XL) 30 MG TAB PO SCH ×2 (07:52→20:22)
[2018-08-25] MEDS: CEFTRIAXONE 1 GM/50 ML (PMX) 50 ML IVPB SCH (07:55)
[2018-08-25] MEDS: ENOXAPARIN 40 MG/0.4 ML SYG SC SCH (09:00)
[2018-08-25] MEDS: AZITHROMYCIN 500MG/NS (PMX) 250 ML IVPB SCH (09:12)
[2018-08-25] MEDS: ASPIRIN (EC) 81 MG TAB PO SCH (09:14)
--- NOTE | 2018-08-25 11:19 | PN ---
CONNOR PEREZ 08/25/18 1119: Date/Time of Note Date/Time of Note DATE: 08/25/18 TIME: 11:13 Assessment/Plan VTE Prophylaxis Risk score (from [facility])>0 risk: 2 SCD applied (from Ns): Yes Pharmacological prophylaxis: LMWH Lines/Catheters [facility] Saline Lock Urinary Cath still in place: No Assessment/Plan Hospital Course 1. Shortness of breath, weakness, fevers, cough, likely secondary to developing a left-sided pneumonia/bronchospasm. 2. Chest pain could be secondary related to pneumonia; however, the patient also has a left bundle branch on EKG. No prior history. 3. Hypertension, controlled. 4. Obesity. 5. History of questionable asthma. 6 SIRS secondary to #1 7. Hypoxia sec to #1 8. Anemia 9. Leucocytosis. 10. Overweight 11. Prediabetic Assessment/Plan -Continue with nebs. -CW Solu-Medrol - CW ASA /NIFEDIPINE -MAgnesium Supplement due to numerous PVCs - Lexiscan results showed: The type and distribution of the scintigraphic abnormalities are most consistent with a small size predominantly nonreversible perfusion defect in the inferoapical, anteroseptal and inferior [place] and a small reversible perfusion abnormality in the mid anterior wall. Dyskinetic septal wall and no other wall motion abnormalities. The left ventricle ejection fraction at stress is 51%. -Continue with Rocephin/azithromycin -Echo reviewed -DVT proph. Lovenox -GI proph. Protonix Result Diagram: 08/25/18 0750 08/25/18 0750 Results 24hrs Laboratory Tests Test 08/25/18 07:50 White Blood Count 16.1 H Red Blood Count 4.46 L Hemoglobin 13.5 L Hematocrit 41.8 L Mean Corpuscular Volume 93.7 Mean Corpuscular Hemoglobin 30.3 Mean Corpuscular Hemoglobin Concent 32.3 Red Cell Distribution Width 13.3 Platelet Count 382 Mean Platelet Volume 9.9 Immature Granulocytes % 0.600 H Neutrophils % 86.4 H Lymphocytes % 8.6 L Monocytes % 4.3 Eosinophils % 0.0 Basophils % 0.1 Nucleated Red Blood Cells % 0.0 Immature Granulocytes # 0.090 H Neutrophils # 13.9 H Lymphocytes # 1.4 Monocytes # 0.7 Eosinophils # 0.0 Basophils # 0.0 Nucleated Red Blood Cells # 0.0 Prothrombin Time 13.0 Prothrombin Time Ratio 1.0 INR International Normalized Ratio 0.97 Sodium Level 142 Potassium Level 4.0 Chloride Level 104 Carbon Dioxide Level 25 Anion Gap 13 Blood Urea Nitrogen 23 H Creatinine 0.77 Est Glomerular Filtrat Rate mL/min > 60 Glucose Level 148 Calcium Level 9.4 Subjective 24 Hr Interval Summary Constitutional: improved Exam/Review of Systems Exam Vitals Vital Signs Date Temp Pulse Resp B/P (MAP) Pulse Ox O2 O2 Flow FiO2 Time Delivery Rate 08/25/18 84 18 98 21 10:03 08/25/18 97.4 139/73 Room Air 07:32 (95) 08/24/18 3.0 20:00 Intake and Output 08/24/18 08/24/18 08/25/18 1515:00 23:00 07:00 IntakeIntake Total 300 ml 720 ml 240 ml BalanceBalance 300 ml 720 ml 240 ml Constitutional: alert, oriented Head: normocephalic Eyes: nl conjunctiva ENMT: nl external ears & nose Respiratory: diminished breath sounds, wheezing Cardiovascular: regular rate and rhythm, other (PVS on monitor) Gastrointestinal: soft Results Result Diagram: 08/25/18 0750 08/25/18 0750 Results 24hrs Laboratory Tests Test 08/25/18 07:50 White Blood Count 16.1 H Red Blood Count 4.46 L Hemoglobin 13.5 L Hematocrit 41.8 L Mean Corpuscular Volume 93.7 Mean Corpuscular Hemoglobin 30.3 Mean Corpuscular Hemoglobin Concent 32.3 Red Cell Distribution Width 13.3 Platelet Count 382 Mean Platelet Volume 9.9 Immature Granulocytes % 0.600 H Neutrophils % 86.4 H Lymphocytes % 8.6 L Monocytes % 4.3 Eosinophils % 0.0 Basophils % 0.1 Nucleated Red Blood Cells % 0.0 Immature Granulocytes # 0.090 H Neutrophils # 13.9 H Lymphocytes # 1.4 Monocytes # 0.7 Eosinophils # 0.0 Basophils # 0.0 Nucleated Red Blood Cells # 0.0 Prothrombin Time 13.0 Prothrombin Time Ratio 1.0 INR International Normalized Ratio 0.97 Sodium Level 142 Potassium Level 4.0 Chloride Level 104 Carbon Dioxide Level 25 Anion Gap 13 Blood Urea Nitrogen 23 H Creatinine 0.77 Est Glomerular Filtrat Rate mL/min > 60 Glucose Level 148 Calcium Level 9.4 Medications Medication Current Medications IV Flush (NS 3 ml) 3 ml PER PROTOCOL IV ; Start 08/22/18 at 16:30 Ondansetron HCl (Zofran Inj) 4 mg Q6H PRN IV NAUSEA/VOMITING; Start 08/22/18 at 16:30 Acetaminophen (Tylenol Tab) 650 mg Q6H PRN PO .PAIN 1-3 OR TEMP; Start 08/22/18 at 16:30 Acetaminophen/ Hydrocodone Bitart ([place] (5/325)) 1 tab Q6H PRN PO .MOD PAIN 4- 6 Last administered on 08/23/18 00:26; Admin Dose 1 TAB; Start 08/22/18 at 16:30 Docusate Sodium (Colace) 100 mg Q12H PRN PO .CONSTIPATION Last administered on 08/25/18 07:54; Admin Dose 100 MG; Start 08/22/18 at 16:30 Magnesium Hydroxide (Milk Of Mag) 30 ml DAILY PRN PO .CONSTIPATION; Start 08/22/18 at 16:30 Pantoprazole (Protonix Tab) 40 mg DAILY@06 PO Last administered on 08/25/18 06:15; Admin Dose 40 MG; Start 08/23/18 at 06:00 Enoxaparin Sodium (Lovenox) 40 mg DAILY SC Last administered on 08/24/18 08:46; Admin Dose 40 MG; Start 08/22/18 at 16:30 Ceftriaxone Sodium 50 ml @ 100 mls/hr DAILY IVPB Last administered on 08/25/18 07:55; Admin Dose 100 MLS/HR; Start 08/23/18 at 09:00 Azithromycin 250 ml @ 250 mls/hr DAILY IVPB Last administered on 08/25/18 09:12; Admin Dose 250 MLS/HR; Start 08/23/18 at 09:00 Methylprednisolone Sodium Succinate (Solu-Medrol) 40 mg Q8 IV Last administered on 08/25/18 06:15; Admin Dose 40 MG; Start 08/22/18 at 22:00 Aspirin (Halfprin) 81 mg DAILY PO Last administered on 08/25/18 09:14; Admin Dose 81 MG; Start 08/23/18 at 09:00 Albuterol/ Ipratropium (Duoneb) 3 ml Q4H RESP THERAPY HHN Last administered on 6/7/19at 10:02; Admin Dose 3 ML; Start 08/23/18 at 05:00 Hydralazine HCl (Apresoline) 5 mg Q4H PRN IV ELEVATED SYSTOLIC BP; Start 08/23/18 at 04:30 Guaifenesin/ Dextromethorphan (Robitussin Dm Liquid Cup) 10 ml Q4H PRN PO COUGH Last administered on 08/25/18at 07:55; Admin Dose 10 ML; Start 08/23/18 at 15:00 Nifedipine (Procardia Xl) 30 mg BID PO Last administered on 08/25/18at 07:52; Admin Dose 30 MG; Start 08/23/18 at 21:00 Nitroglycerin (Nitroglycerin (Sl Tab) 0.4 Mg) 1 tab Q5M PRN SL ANGINA; Start 08/23/18 at 15:30 MONIKA BERRIOS MD 08/25/18 1503: Assessment/Plan Assessment/Plan Assessment/Plan angiogram today seen and examined Result Diagram: 08/25/18 0750 08/25/18 0750 CONNOR GUILLORY Aug 25, 2018 11:19 MONIKA BERRIOS MD Aug 25, 2018 15:03
[2018-08-25] MEDS ORDERED: MAGNESIUM SULFATE 2 GM/50 ML 50 ML IVPB ONE (11:30)
[2018-08-25] MEDS ORDERED: HEPARIN 1000 UNITS/ML 10 ML INJ ONE (11:37)
[2018-08-25] MEDS ORDERED: LIDOCAINE 1% (MDV) 20 ML INJ ONE (11:37)
[2018-08-25] MEDS ORDERED: IODIXANOL LOCM 100 ML BTL ONE (11:37)
[2018-08-25] MEDS ORDERED: NITROGLYCERIN (IC) 100 MCG/ML INJ ONE (11:38)
[2018-08-25] MEDS ORDERED: FENTAnyl 50 MCG/ML VIAL ONE (11:38)
[2018-08-25] MEDS ORDERED: VERAPAMIL 5 MG INJ ONE (11:38)
[2018-08-25] MEDS ORDERED: MIDAZOLAM 1 MG/ML 2 ML INJ ONE (11:38)
--- NOTE | 2018-08-25 12:56 | SIPON ---
Date/Time of Note Date/Time of Note DATE: 08/25/18 TIME: 12:55 Operative Report Preoperative Diagnosis 1.LBBB 2.abnl MPI Postoperative Diagnosis 1.no significant cad Operation/Procedure Performed 1.[facility] Surgeon see signature line conference assistant 1.Johnny Anesthesia: moderate sedation Estimated blood loss: minimal Transfusion Required none Specimen none Grafts/Implants none Complications none ELENO MALLOY Aug 25, 2018 12:56
--- NOTE | 2018-08-25 12:58 | CONS ---
Assessment/Plan Assessment/Plan Hospital Course (Demo Recall) IMPRESSION: 1. Chest pain, assess for acute coronary syndrome. 2. Left bundle branch block. Assess for acute coronary syndrome. 3. Hypertension, uncontrolled, at this time labile. 4. Upper respiratory infection with probable pneumonia. 5. Anemia, mild. 6.abnl MPI-anterior ischemia/NL EF 08/24 Recc: -Tele -Continue procardia XL and f/u BP closely -Continue asa -Contiinue steroids/bronchodilators -LHC with possible PTCA/stent today Consultation Date/Type/Reason Admit Date/Time Aug 22, 2018 at 13:48 Initial Consult Date 08/24/18 Type of Consult Cardiology Reason for Consultation LBBB Requesting Provider: MONIKA BERRIOS MD Date/Time of Note DATE: 08/25/18 TIME: 12:56 Exam/Review of Systems Vital Signs Vitals Vital Signs Date Temp Pulse Resp B/P (MAP) Pulse Ox O2 O2 Flow FiO2 Time Delivery Rate 08/25/18 98.2 96 20 146/79 94 Room Air 11:28 (101) 08/25/18 21 10:03 08/25/18 3.0 08:00 Intake and Output 08/24/18 08/24/18 08/25/18 1515:00 23:00 07:00 IntakeIntake Total 300 ml 720 ml 240 ml BalanceBalance 300 ml 720 ml 240 ml Exam Exam Review of Systems: CONSTITUTIONAL: No fevers, chills. PULMONARY: mild sob CARDIOVASCULAR: No chest pain/palpitations GASTROINTESTINAL: No nausea/vomiting. GENITOURINARY: No hematuria/dysuria. MUSCULOSKELETAL: No myagias/arthalgias. PSYCHIATRIC: The patient denies depression. NEUROLOGIC: No weakness Constitutional: alert, oriented Psych: no complaints Head: normocephalic ENMT: mucosa pink and moist Neck: supple, jvd (9 cm water) Respiratory: clear to auscultation Cardiovascular: regular rate and rhythm Gastrointestinal: soft, non-tender Musculoskeletal: muscle tone (normal) Extremities: edema (none) Labs Result Diagram: 08/25/18 0750 08/25/18 0750 Results 24hrs Laboratory Tests Test 08/25/18 07:50 White Blood Count 16.1 H Red Blood Count 4.46 L Hemoglobin 13.5 L Hematocrit 41.8 L Mean Corpuscular Volume 93.7 Mean Corpuscular Hemoglobin 30.3 Mean Corpuscular Hemoglobin Concent 32.3 Red Cell Distribution Width 13.3 Platelet Count 382 Mean Platelet Volume 9.9 Immature Granulocytes % 0.600 H Neutrophils % 86.4 H Lymphocytes % 8.6 L Monocytes % 4.3 Eosinophils % 0.0 Basophils % 0.1 Nucleated Red Blood Cells % 0.0 Immature Granulocytes # 0.090 H Neutrophils # 13.9 H Lymphocytes # 1.4 Monocytes # 0.7 Eosinophils # 0.0 Basophils # 0.0 Nucleated Red Blood Cells # 0.0 Prothrombin Time 13.0 Prothrombin Time Ratio 1.0 INR International Normalized Ratio 0.97 Sodium Level 142 Potassium Level 4.0 Chloride Level 104 Carbon Dioxide Level 25 Anion Gap 13 Blood Urea Nitrogen 23 H Creatinine 0.77 Est Glomerular Filtrat Rate mL/min > 60 Glucose Level 148 Calcium Level 9.4 Medications Medications Current Medications IV Flush (NS 3 ml) 3 ml PER PROTOCOL IV ; Start 08/22/18 at 16:30 Ondansetron HCl (Zofran Inj) 4 mg Q6H PRN IV NAUSEA/VOMITING; Start 08/22/18 at 16:30 Acetaminophen (Tylenol Tab) 650 mg Q6H PRN PO .PAIN 1-3 OR TEMP; Start 08/22/18 at 16:30 Acetaminophen/ Hydrocodone Bitart ([place] (5/325)) 1 tab Q6H PRN PO .MOD PAIN 4- 6 Last administered on 08/23/18at 00:26; Admin Dose 1 TAB; Start 08/22/18 at 16:30 Docusate Sodium (Colace) 100 mg Q12H PRN PO .CONSTIPATION Last administered on 08/25/18at 07:54; Admin Dose 100 MG; Start 08/22/18 at 16:30 Magnesium Hydroxide (Milk Of Mag) 30 ml DAILY PRN PO .CONSTIPATION; Start 08/22/18 at 16:30 Pantoprazole (Protonix Tab) 40 mg DAILY@06 PO Last administered on 08/25/18at 06:15; Admin Dose 40 MG; Start 08/23/18 at 06:00 Enoxaparin Sodium (Lovenox) 40 mg DAILY SC Last administered on 08/24/18at 08:46; Admin Dose 40 MG; Start 08/22/18 at 16:30 Ceftriaxone Sodium 50 ml @ 100 mls/hr DAILY IVPB Last administered on 08/25/18 07:55; Admin Dose 100 MLS/HR; Start 08/23/18 at 09:00 Azithromycin 250 ml @ 250 mls/hr DAILY IVPB Last administered on 08/25/18 09:12; Admin Dose 250 MLS/HR; Start 08/23/18 at 09:00 Methylprednisolone Sodium Succinate (Solu-Medrol) 40 mg Q8 IV Last administered on 08/25/18 06:15; Admin Dose 40 MG; Start 08/22/18 at 22:00 Aspirin (Halfprin) 81 mg DAILY PO Last administered on 08/25/18 09:14; Admin Dose 81 MG; Start 08/23/18 at 09:00 Albuterol/ Ipratropium (Duoneb) 3 ml Q4H RESP THERAPY HHN Last administered on 08/25/18 10:02; Admin Dose 3 ML; Start 08/23/18 at 05:00 Hydralazine HCl (Apresoline) 5 mg Q4H PRN IV ELEVATED SYSTOLIC BP; Start 08/23/18 at 04:30 Guaifenesin/ Dextromethorphan (Robitussin Dm Liquid Cup) 10 ml Q4H PRN PO COUGH Last administered on 08/25/18 07:55; Admin Dose 10 ML; Start 08/23/18 at 15:00 Nifedipine (Procardia Xl) 30 mg BID PO Last administered on 08/25/18 07:52; Admin Dose 30 MG; Start 08/23/18 at 21:00 Nitroglycerin (Nitroglycerin (Sl Tab) 0.4 Mg) 1 tab Q5M PRN SL ANGINA; Start 08/23/18 at 15:30 Magnesium Sulfate 50 ml @ 25 mls/hr ONCE ONCE IVPB ; Start 08/25/18 at 11:30; Stop 08/25/18 at 13:29 ELENO MALLOY Aug 25, 2018 12:58
[2018-08-25] MEDS ORDERED: morphine 2 MG INJ IV PRN (13:00)
[2018-08-25] MEDS ORDERED: ACETAMINOPHEN 325 MG TAB PO PRN (13:00)
[2018-08-25] MEDS ORDERED: SOD CHLORIDE 0.9% 1,000 ML IV SCH (13:00)
--- NOTE | 2018-08-25 18:40 | CARRPT ---
DATE OF PROCEDURE: 08/25/2018 REASON FOR CATHETERIZATION: Abnormal stress test, positive anterior ischemia, left bundle branch block on EKG new, assess for obstructive coronary artery disease. TYPE OF ANESTHESIA: Conscious and local. TYPE OF PROCEDURES: 1. Left heart catheterization. 2. Coronary angiography. 3. Moderate conscious sedation. ATTENDING PHYSICIAN: Eleno Reeves MD REFERRING PHYSICIAN: Mer Berrios MD INDICATION: Abnormal cardiac stress test with anterior ischemia, new left bundle branch block on EKG, assess for obstructive coronary artery disease. BRIEF HISTORY AND HOSPITAL COURSE: Mr. Alysha Solano is a 67-year-old male with history of hypertension, dyslipidemia who initially complained of shortness of breath and was noted to have a new left bundle branch block on EKG. The patient was subsequently ruled out for myocardial infarction and underwent a 2D echo revealing a preserved EF and a cardiac stress test given new left bundle block revealing anterior ischemia. Given these findings, the patient was referred for and presents today in order to undergo left heart catheterization to assess possibility of significant obstructive coronary artery disease lending symptoms of shortness of breath and positive stress test findings and was admitted to the hospital. PROCEDURE IN DETAILS: After informed consent was obtained, the patient was brought to [facility] cardiac catheterization lab where his right radial area was prepped and draped in the usual sterile fashion. A 2% lidocaine was infiltrated in the right radial area in order to achieve adequate anesthesia. Using the modified Seldinger technique, the right radial artery was cannulated and a 6-Belizean arterial sheath was placed. A 6-Belizean JL3.5 catheter was used to cannulate the left main coronary ostium. With contrast injection, multiple views of the left coronary arterial system were obtained. JL3.5 was removed over a guidewire and a JR4 were used to cannulate the right coronary arterial ostium. With contrast injection, multiple views of the right coronary arterial system were obtained. JR4 was removed over a guidewire and a 6-Belizean pigtail was passed down the ascending aorta and placed in LV. LVEDP was measured. A 20 mL of contrast were injected and pullback across the aortic valve to assess for significant gradient, which there was not. Subsequently at this time, this completed the procedure. The patient's catheter was removed. Sheath was removed. TR band was applied. There were no noted complications. FINDINGS: Coronary angiography: Left main is 5 mm, no focal significant stenosis. Circumflex proximally is a 3.5 mm vessel, has a 20% stenosis. Branch of the circumflex continuation AV groove is free from significant focal stenoses and high branching obtuse marginal is 2.5 mm with no significant focal stenoses. There exists a very small ramus branch and sub 2 mm vessels with no significant focal stenoses. LAD proximally is a 3.5 mm vessel and in its proximal portion has no significant focal stenoses and in the mid distal portion, there is a 20% stenosis. There is a high branching diagonal 2.5 mm and ostial 30% stenosis. The right coronary proximally is a 3.5 mm vessel and its mid distal portion becomes somewhat ectatic appearing, has no significant focal stenoses and gives off 2.5 mm PDA with an ostial 30% stenosis and a 3 mm posterolateral branch with no significant focal stenosis. Left ventriculogram: The left ventricular ejection fraction of 60% to 65%. No significant aortic stenosis by gradient. A 1+ mitral regurgitation. LVEDP of 20. IMPRESSION: 1. Very mild nonobstructive coronary artery disease with essentially normal coronary arteries. 2. Mildly elevated left heart filling pressures. 3. No significant aortic stenosis by gradient. RECOMMENDATIONS: In light of procedure findings, we would: 1. Maximize medical management. 2. Aggressive risk factor reduction. 3. The patient will be readmitted to the telemetry floor post-cath observation and continued management of his presenting symptoms. Dictated By: ELENO ANN/MARYLOU Conf#: [id number] DID#: [id number] CC: MER BERRIOS;*Alberto* MTDD
[2018-08-26] VITALS (10 sets, daily range): BP systolic 130–158; BP diastolic 69–91; PULSE 18–187; RESP 18–22
[2018-08-26] MEDS: ALBUTEROL/IPRATROPIUM (NEB) 3 ML AMP HHN SCH ×5 (01:48→17:30)
[2018-08-26] MEDS: PANTOPRAZOLE (EC) 40 MG TAB PO SCH (05:48)
[2018-08-26] MEDS: ASPIRIN (EC) 81 MG TAB PO SCH (08:24)
[2018-08-26] MEDS: METHYLPREDNISOLONE 40 MG INJ IV SCH (08:24)
[2018-08-26] MEDS: CEFTRIAXONE 1 GM/50 ML (PMX) 50 ML IVPB SCH (08:24)
[2018-08-26] MEDS: NIFEdipine (XL) 30 MG TAB PO SCH (08:24)
[2018-08-26] MEDS: ENOXAPARIN 40 MG/0.4 ML SYG SC SCH (08:36)
[2018-08-26] MEDS: AZITHROMYCIN 500MG/NS (PMX) 250 ML IVPB SCH (09:03)
--- NOTE | 2018-08-26 12:40 | PN ---
Date/Time of Note Date/Time of Note DATE: 08/26/18 TIME: 12:38 Assessment/Plan VTE Prophylaxis Risk score (from Ns)>0 risk: 4 SCD applied (from Ns): Yes Pharmacological prophylaxis: LMWH Lines/Catheters IV [facility]ter [facility]from [facility] [place] Urinary Cath still in place: No Assessment/Plan Hospital Course 1. Shortness of breath, weakness, fevers, cough, likely secondary to developing a left-sided pneumonia/bronchospasm. 2. Chest pain could be secondary related to pneumonia; however, the patient also has a left bundle branch on EKG. No prior history. 3. Hypertension, controlled. 4. Obesity. 5. History of questionable asthma. 6 SIRS secondary to #1 7. Hypoxia sec to #1 8. Anemia 9. Leucocytosis. 10. Overweight 11. Prediabetic Assessment/Plan -Continue with nebs. -d/c tomorrow -wean from oxygen -CW Solu-Medrol, titrate off - CW ASA /NIFEDIPINE - Lexiscan results showed: The type and distribution of the scintigraphic abnormalities are most consistent with a small size predominantly nonreversible perfusion defect in the inferoapical, anteroseptal and inferior valencia and a small reversible perfusion abnormality in the mid anterior wall. Dyskinetic septal wall and no other wall motion abnormalities. The left ventricle ejection fraction at stress is 51%. -Continue with Rocephin/azithromycin -Echo reviewed -DVT proph. Lovenox -GI proph. Protonix -Ambulate Result Diagram: 08/26/18 0755 08/26/18 0755 Results 24hrs Laboratory Tests Test 08/26/18 07:55 White Blood Count 13.1 H Red Blood Count 3.98 L Hemoglobin 12.3 L Hematocrit 37.5 L Mean Corpuscular Volume 94.2 Mean Corpuscular Hemoglobin 30.9 Mean Corpuscular Hemoglobin Concent 32.8 Red Cell Distribution Width 13.0 Platelet Count 353 Mean Platelet Volume 9.7 Immature Granulocytes % 0.700 H Neutrophils % 71.6 Lymphocytes % 20.5 Monocytes % 7.0 Eosinophils % 0.0 Basophils % 0.2 Nucleated Red Blood Cells % 0.0 Immature Granulocytes # 0.090 H Neutrophils # 9.4 H Lymphocytes # 2.7 Monocytes # 0.9 Eosinophils # 0.0 Basophils # 0.0 Nucleated Red Blood Cells # 0.0 Sodium Level 139 Potassium Level 3.8 Chloride Level 105 Carbon Dioxide Level 28 Anion Gap 6 Blood Urea Nitrogen 21 H Creatinine 0.73 Est Glomerular Filtrat Rate mL/min > 60 Glucose Level 131 Calcium Level 8.5 Magnesium Level 2.5 Subjective 24 Hr Interval Summary Respiratory: cough, shortness of breath Exam/Review of Systems Exam Vitals Vital Signs Date Temp Pulse Resp B/P (MAP) Pulse Ox O2 O2 Flow FiO2 Time Delivery Rate 08/26/18 98.4 84 18 155/79 98 Nasal 3.0 12:00 (104) Cannula 18 08/26/18 27 05:36 Intake and Output 08/25/18 08/25/18 08/26/18 1515:00 23:00 07:00 IntakeIntake Total 390 ml 1540 ml BalanceBalance 390 ml 1540 ml Constitutional: alert, oriented Head: normocephalic Eyes: nl conjunctiva Respiratory: congested cough, other (rhonchi) Results Results 24hrs Laboratory Tests Test 08/26/18 07:55 White Blood Count 13.1 H Red Blood Count 3.98 L Hemoglobin 12.3 L Hematocrit 37.5 L Mean Corpuscular Volume 94.2 Mean Corpuscular Hemoglobin 30.9 Mean Corpuscular Hemoglobin Concent 32.8 Red Cell Distribution Width 13.0 Platelet Count 353 Mean Platelet Volume 9.7 Immature Granulocytes % 0.700 H Neutrophils % 71.6 Lymphocytes % 20.5 Monocytes % 7.0 Eosinophils % 0.0 Basophils % 0.2 Nucleated Red Blood Cells % 0.0 Immature Granulocytes # 0.090 H Neutrophils # 9.4 H Lymphocytes # 2.7 Monocytes # 0.9 Eosinophils # 0.0 Basophils # 0.0 Nucleated Red Blood Cells # 0.0 Sodium Level 139 Potassium Level 3.8 Chloride Level 105 Carbon Dioxide Level 28 Anion Gap 6 Blood Urea Nitrogen 21 H Creatinine 0.73 Est Glomerular Filtrat Rate mL/min > 60 Glucose Level 131 Calcium Level 8.5 Magnesium Level 2.5 Medications Medication Current Medications IV Flush (NS 3 ml) 3 ml PER PROTOCOL IV ; Start 08/22/18 at 16:30 Ondansetron HCl (Zofran Inj) 4 mg Q6H PRN IV NAUSEA/VOMITING; Start 08/22/18 at 16:30 Acetaminophen (Tylenol Tab) 650 mg Q6H PRN PO .PAIN 1-3 OR TEMP; Start 08/22/18 at 16:30 Acetaminophen/ Hydrocodone Bitart ([place] (5/325)) 1 tab Q6H PRN PO .MOD PAIN 4- 6 Last administered on 08/23/18 00:26; Admin Dose 1 TAB; Start 08/22/18 at 16:30 Docusate Sodium (Colace) 100 mg Q12H PRN PO .CONSTIPATION Last administered on 08/25/18 07:54; Admin Dose 100 MG; Start 08/22/18 at 16:30 Magnesium Hydroxide (Milk Of Mag) 30 ml DAILY PRN PO .CONSTIPATION; Start 08/22/18 at 16:30 Pantoprazole (Protonix Tab) 40 mg DAILY@06 PO Last administered on 08/26/18 05:48; Admin Dose 40 MG; Start 08/23/18 at 06:00 Enoxaparin Sodium (Lovenox) 40 mg DAILY SC Last administered on 08/26/18 08:36; Admin Dose 40 MG; Start 08/22/18 at 16:30 Ceftriaxone Sodium 50 ml @ 100 mls/hr DAILY IVPB Last administered on 08/26/18 08:24; Admin Dose 100 MLS/HR; Start 08/23/18 at 09:00 Azithromycin 250 ml @ 250 mls/hr DAILY IVPB Last administered on 08/26/18 09:03; Admin Dose 250 MLS/HR; Start 08/23/18 at 09:00 Aspirin (Halfprin) 81 mg DAILY PO Last administered on 08/26/18 08:24; Admin Dose 81 MG; Start 08/23/18 at 09:00 Albuterol/ Ipratropium (Duoneb) 3 ml Q4H RESP THERAPY HHN Last administered on 08/26/18 09:43; Admin Dose 3 ML; Start 08/23/18 at 05:00 Hydralazine HCl (Apresoline) 5 mg Q4H PRN IV ELEVATED SYSTOLIC BP; Start 08/23/18 at 04:30 Guaifenesin/ Dextromethorphan (Robitussin Dm Liquid Cup) 10 ml Q4H PRN PO COUGH Last administered on 08/25/18 07:55; Admin Dose 10 ML; Start 08/23/18 at 15:00 Nifedipine (Procardia Xl) 30 mg BID PO Last administered on 08/26/18at 08:24; Admin Dose 30 MG; Start 08/23/18 at 21:00 Nitroglycerin (Nitroglycerin (Sl Tab) 0.4 Mg) 1 tab Q5M PRN SL ANGINA; Start 08/23/18 at 15:30 Acetaminophen (Tylenol Tab) 650 mg Q4H PRN PO NON-CARDIAC PAIN LEVEL (1-3); Start 08/25/18 at 13:00 Morphine Sulfate (morphine) 2 mg Q2H PRN IV FOR NON CARDIAC PAIN (4-10); Start 08/25/18 at 13:00 Methylprednisolone Sodium Succinate (Solu-Medrol) 40 mg Q12 IV Last administered on 08/26/18 08:24; Admin Dose 40 MG; Start 08/25/18 at 21:00 CONNOR GUILLORY Aug 26, 2018 12:40
--- NOTE | 2018-08-26 13:28 | PDOCDIS ---
Discharge Instructions DIAGNOSIS Discharge Diagnosis pneumonia CONDITION [id number] Patient Condition: [id number] Stable HOME CARE INSTRUCTIONS: [id number] Diet Instructions: [id number] Reduced Sodium ACTIVITY: [id number] Activity Restrictions: [id number] Slowly Increase Activity Rest between Activity Avoid heavy lifting No Sexual Activity FOLLOW UP/APPOINTMENTS Follow-up Plan PCP 1 week CONNOR GUILLORY Aug 26, 2018 13:28
[2018-08-26] MEDS ORDERED: AZIT250T13 PO (13:32)
[2018-08-26] MEDS ORDERED: ASPI-1044 PO (13:32)
[2018-08-26] MEDS ORDERED: LEVO500T48 PO (13:32)
[2018-08-26] MEDS ORDERED: GUAI120S25 PO (13:32)
[2018-08-26] MEDS ORDERED: MED4DP PO (13:32)
[2018-08-26] MEDS ORDERED: NIFE30TA2 PO (13:32)
[2018-08-26] MEDS ORDERED: NITR0.4T32 SL (13:32)
--- NOTE | 2018-08-26 13:32 | DS ---
Date/Time of Note Date/Time of Note DATE: 08/26/18 TIME: 13:32 Discharge Summary Admission/Discharge Info Admit Date/Time Aug 22, 2018 at 13:48 Discharge Date/Time Discharge Diagnosis pneumonia Patient Condition: Stable Consults dr Reeves, cardiology Procedures stress test negative Hospital Course This is a 67-year-old male with a past medical history of hypertension, obesity, presented to the emergency department after having a left-sided chest pain, shortness of breath and cough for the past 4 to 5 days. According to the patient, he started noticing some intermittent left sharp chest pain for 15 days. 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 He has been having good exercise tolerance; however, for the last 15 days, he was noticing every time he was breathing, taking a breath, he was having some intermittent left chest pains. Pain would last for a few minutes going through the throat and to the back. The patient started feeling cough, sore throat, shortness of breath, which was progressively getting worse and also with cough productive in nature which made him come to the emergency department. According to him, the whole body has been hurting. The patient was also having subjective fevers at home. Denies any orthopnea, PND, any lower extremity edema. The patient only takes Losartan at home. The patient was advised by the PCP to have a cardiology checkup. The patient denies any orthopnea, PND, any lower extremity edema. On arrival to ED, vital signs show temperature 100.0, pulse 100, respirations 18, blood pressure 135/82, saturating 97% on 3 liters. The patient had labs, showed BMP within normal limit. BNP of 522. White count 10.7, hemoglobin 13.5, platelet count 238. Had a chest x-ray that showed mild increased left lung infiltrate for developing pneumonia. EKG showed left bundle branch block and patient received Toradol, Rocephin, azithromycin, albuterol, Atrovent and was admitted for further management. PAST MEDICAL HISTORY: Hypertension. MEDICATIONS: Taking at home Losartan. PAST SURGICAL HISTORY: None. Impressions: 1. Shortness of breath, weakness, fevers, cough, likely secondary to developing a left-sided pneumonia/bronchospasm. 2. Chest pain could be secondary related to pneumonia; however, the patient also has a left bundle branch on EKG. No prior history. 3. Hypertension, controlled. 4. Obesity. 5. History of questionable asthma. 6 SIRS secondary to #1 7. Hypoxia sec to #1 8. Anemia 9. Leucocytosis. 10. Overweight 11. Prediabetic During hospitalization pt was seen by dr Reeves, cardiology. He read echocardiogram, EF is above 65 %. Stress test is also negative. EKG shows LBBB. Lexiscan results showed: The type and distribution of the scintigraphic abnormalities are most consistent with a small size predominantly nonreversible perfusion defect in the inferoapical, anteroseptal and inferior valencia and a small reversible perfusion abnormality in the mid anterior wall. Dyskinetic septal wall and no other wall motion abnormalities. The left ventricle ejection fraction at stress is 51%. We treated pt with nebs. Pt initially was on oxygen, then was titrated off. Pt was able to ambulate without oxygen. Pt was on solumedrol IV , then we titrated it down. He reported clinical improvement. Pt was given Rocephin/azithromycin IV. He was sent home with oral antibiotics. Home Meds Active Scripts [id number] Hb* (Guaifenesin* DM Syrup) 120 Ml Syrup, 10 ML PO Q4H PRN for COUGH for 10 Days Prov:CONNOR GUILLORY 08/26/18 Aspirin Delayed Release (Aspirin Delayed Release) 81 Mg Tablet.dr, 81 MG PO DAILY for 90 Days Prov:CONNOR GUILLORY 08/26/18 Nitroglycerin* (Nitroglycerin* SL) 0.4 Mg Tab.subl, 1 TAB SL Q5M PRN for ANGINA for 30 Days Prov:CONNOR GUILLORY 08/26/18 Nifedipine (Procardia Xl) 30 Mg Tab.er.24, 30 MG PO BID for 30 Days, TAB Prov:CONNOR GUILLORY 08/26/18 Methylprednisolone* (Medrol* DOSE PACK) 4 Mg/Dose-Pack Tab.ds.pk, 4 MG PO . DIRECTED, #5 PACKET Prov:CONNOR GUILLORY 08/26/18 Levofloxacin* (Levaquin*) 500 Mg Tablet, 500 MG PO DAILY for 7 Days, TAB Prov:CONNOR GUILLORY 08/26/18 Azithromycin* (Azithromycin*) 250 Mg Tablet, 250 MG PO DAILY, #4 TAB Prov:CONNOR GUILLORY 08/26/18 Reported Medications Albuterol Sulfate* (Ventolin HFA*) 18 Gm Hfa.aer.ad, 2 PUFF INHALATION Q4H, #1 INHALER 08/22/18 Amlodipine Besylate* (Amlodipine Besylate*) 10 Mg Tablet, 10 MG PO DAILY, #30 TAB 08/22/18 Discontinued Reported Medications Losartan Potassium* (Losartan Potassium*) 100 Mg Tablet, 100 MG PO DAILY, TAB 08/22/18 Follow-up Plan PCP 1 week Primary Care Provider Not On Staff Doctor Time spent on discharge: < 30 minutes Pending Labs Laboratory Tests Test 08/26/18 07:55 White Blood Count 13.1 10^3/ul (4.8-10.8) Red Blood Count 3.98 10^6/ul (4.70-6.10) Hemoglobin 12.3 g/dl (14.0-18.0) Hematocrit 37.5 % (42.0-52.0) Mean Corpuscular Volume 94.2 fl (82.0-101.0) Mean Corpuscular Hemoglobin 30.9 pg (29.0-33.0) Mean Corpuscular Hemoglobin Concent 32.8 g/dl (32.0-37.0) Red Cell Distribution Width 13.0 % (11.5-14.5) Platelet Count 353 10^3/UL (140-415) Mean Platelet Volume 9.7 fl (7.4-10.4) Immature Granulocytes % 0.700 % (0.001-0.429) Neutrophils % 71.6 % (39.0-77.0) Lymphocytes % 20.5 % (15.0-51.0) Monocytes % 7.0 % (0.0-11.0) Eosinophils % 0.0 % (0.0-7.0) Basophils % 0.2 % (0.0-2.0) Nucleated Red Blood Cells % 0.0 /100WBC (0.0-0.0) Immature Granulocytes # 0.090 10^3/ul (0.0-0.031) Neutrophils # 9.4 10^3/ul (1.6-7.5) Lymphocytes # 2.7 10^3/ul (0.8-2.9) Monocytes # 0.9 10^3/ul (0.3-0.9) Eosinophils # 0.0 10^3/ul (0.0-0.5) Basophils # 0.0 10^3/ul (0.0-0.1) Nucleated Red Blood Cells # 0.0 10^3/ul (0.0-0.0) Sodium Level 139 mmol/L (135-144) Potassium Level 3.8 mmol/L (3.5-5.1) Chloride Level 105 mmol/L (97-110) Carbon Dioxide Level 28 mmol/L (21-31) Anion Gap 6 (5-13) Blood Urea Nitrogen 21 mg/dl (7-20) Creatinine 0.73 mg/dl (0.61-1.24) Est Glomerular Filtrat Rate mL/min > 60 mL/min (>60) Glucose Level 131 mg/dl (70-220) Calcium Level 8.5 mg/dl (8.4-10.2) Magnesium Level 2.5 mg/dl (1.7-2.5) CONNOR GUILLORY Aug 26, 2018 13:32
--- NOTE | 2018-08-26 14:07 | CONS ---
Assessment/Plan Assessment/Plan Hospital Course (Demo Recall) IMPRESSION: 1. Chest pain, assess for acute coronary syndrome.-neg trop x 3 and now s/p lHC with no sig cad 2. Left bundle branch block. Assess for acute coronary syndrome. 3. Hypertension, uncontrolled, at this time labile. 4. Upper respiratory infection with probable pneumonia. 5. Anemia, mild. 6.abnl MPI-anterior ischemia/NL EF 08/24 Recc: -Tele -Continue procardia XL and f/u BP closely -Continue asa -ok for d/c from cardiac standpoint Consultation Date/Type/Reason Admit Date/Time Aug 22, 2018 at 13:48 Initial Consult Date 08/24/18 Type of Consult Cardiology Reason for Consultation LBBB/abnl mpi Requesting Provider: MONIKA BERRIOS MD Date/Time of Note DATE: 08/26/18 TIME: 14:06 Exam/Review of Systems Vital Signs Vitals Vital Signs Date Temp Pulse Resp B/P (MAP) Pulse Ox O2 O2 Flow FiO2 Time Delivery Rate 08/26/18 82 18 96 Room Air 13:38 08/26/18 98.4 155/79 3.0 12:00 (104) 08/26/18 27 05:36 Intake and Output 08/25/18 08/25/18 08/26/18 1515:00 23:00 07:00 IntakeIntake Total 390 ml 1540 ml BalanceBalance 390 ml 1540 ml Exam Exam Review of Systems: CONSTITUTIONAL: No fevers, chills. PULMONARY: No sob CARDIOVASCULAR: No chest pain/palpitations GASTROINTESTINAL: No nausea/vomiting. GENITOURINARY: No hematuria/dysuria. MUSCULOSKELETAL: No myagias/arthalgias. PSYCHIATRIC: The patient denies depression. NEUROLOGIC: No weakness Constitutional: alert, oriented Psych: no complaints Head: normocephalic ENMT: mucosa pink and moist Neck: supple, jvd (9 cm water) Respiratory: diminished breath sounds Cardiovascular: regular rate and rhythm Gastrointestinal: soft, non-tender Musculoskeletal: muscle tone (normal) Extremities: edema (none) Labs Result Diagram: 08/26/18 0755 08/26/18 0755 Results 24hrs Laboratory Tests Test 08/26/18 07:55 White Blood Count 13.1 H Red Blood Count 3.98 L Hemoglobin 12.3 L Hematocrit 37.5 L Mean Corpuscular Volume 94.2 Mean Corpuscular Hemoglobin 30.9 Mean Corpuscular Hemoglobin Concent 32.8 Red Cell Distribution Width 13.0 Platelet Count 353 Mean Platelet Volume 9.7 Immature Granulocytes % 0.700 H Neutrophils % 71.6 Lymphocytes % 20.5 Monocytes % 7.0 Eosinophils % 0.0 Basophils % 0.2 Nucleated Red Blood Cells % 0.0 Immature Granulocytes # 0.090 H Neutrophils # 9.4 H Lymphocytes # 2.7 Monocytes # 0.9 Eosinophils # 0.0 Basophils # 0.0 Nucleated Red Blood Cells # 0.0 Sodium Level 139 Potassium Level 3.8 Chloride Level 105 Carbon Dioxide Level 28 Anion Gap 6 Blood Urea Nitrogen 21 H Creatinine 0.73 Est Glomerular Filtrat Rate mL/min > 60 Glucose Level 131 Calcium Level 8.5 Magnesium Level 2.5 Medications Medications Current Medications IV Flush (NS 3 ml) 3 ml PER PROTOCOL IV ; Start 08/22/18 at 16:30 Ondansetron HCl (Zofran Inj) 4 mg Q6H PRN IV NAUSEA/VOMITING; Start 08/22/18 at 16:30 Acetaminophen (Tylenol Tab) 650 mg Q6H PRN PO .PAIN 1-3 OR TEMP; Start 08/22/18 at 16:30 Acetaminophen/ Hydrocodone Bitart ([place] (5/325)) 1 tab Q6H PRN PO .MOD PAIN 4- 6 Last administered on 08/23/18at 00:26; Admin Dose 1 TAB; Start 08/22/18 at 16:30 Docusate Sodium (Colace) 100 mg Q12H PRN PO .CONSTIPATION Last administered on 08/25/18at 07:54; Admin Dose 100 MG; Start 08/22/18 at 16:30 Magnesium Hydroxide (Milk Of Mag) 30 ml DAILY PRN PO .CONSTIPATION; Start 08/22/18 at 16:30 Pantoprazole (Protonix Tab) 40 mg DAILY@06 PO Last administered on 08/26/18at 05:48; Admin Dose 40 MG; Start 08/23/18 at 06:00 Enoxaparin Sodium (Lovenox) 40 mg DAILY SC Last administered on 08/26/18at 08:36; Admin Dose 40 MG; Start 08/22/18 at 16:30 Ceftriaxone Sodium 50 ml @ 100 mls/hr DAILY IVPB Last administered on 08/26/18 08:24; Admin Dose 100 MLS/HR; Start 08/23/18 at 09:00 Azithromycin 250 ml @ 250 mls/hr DAILY IVPB Last administered on 08/26/18 09:03; Admin Dose 250 MLS/HR; Start 08/23/18 at 09:00 Aspirin (Halfprin) 81 mg DAILY PO Last administered on 08/26/18 08:24; Admin Dose 81 MG; Start 08/23/18 at 09:00 Albuterol/ Ipratropium (Duoneb) 3 ml Q4H RESP THERAPY HHN Last administered on 08/26/18 09:43; Admin Dose 3 ML; Start 08/23/18 at 05:00 Hydralazine HCl (Apresoline) 5 mg Q4H PRN IV ELEVATED SYSTOLIC BP; Start 08/23/18 at 04:30 Guaifenesin/ Dextromethorphan (Robitussin Dm Liquid Cup) 10 ml Q4H PRN PO COUGH Last administered on 08/25/18 07:55; Admin Dose 10 ML; Start 08/23/18 at 15:00 Nifedipine (Procardia Xl) 30 mg BID PO Last administered on 08/26/18 08:24; Admin Dose 30 MG; Start 08/23/18 at 21:00 Nitroglycerin (Nitroglycerin (Sl Tab) 0.4 Mg) 1 tab Q5M PRN SL ANGINA; Start 08/23/18 at 15:30 Acetaminophen (Tylenol Tab) 650 mg Q4H PRN PO NON-CARDIAC PAIN LEVEL (1-3); St art 08/25/18 at 13:00 Morphine Sulfate (morphine) 2 mg Q2H PRN IV FOR NON CARDIAC PAIN (4-10); Start 08/25/18 at 13:00 Methylprednisolone Sodium Succinate (Solu-Medrol) 40 mg Q12 IV Last administered on 08/26/18 08:24; Admin Dose 40 MG; Start 08/25/18 at 21:00 ELENO MALLOY Aug 26, 2018 14:07
[2018-08-26] MEDS ORDERED: METOPROLOL 25 MG TAB PO SCH (15:00)
== END 2018-08-26 18:55 | disposition home or self-care (01) | DRG 195 ==
LOC: E/R 09:52 → TEL 13:48
PROVIDERS: ADMIT Internal Medicine; ATTEND Internal Medicine
PROC: 4A033R1 Measurement of Arterial Saturation, Peripheral, Percutaneous Approach (ICD-10-PCS; 2018-08-22)
PROC: 4A02XM4 Measurement of Cardiac Total Activity, External Approach (ICD-10-PCS; 2018-08-24)
PROC: 3E033HZ Introduction of Radioactive Substance into Peripheral Vein, Percutaneous Approach (ICD-10-PCS; 2018-08-24)
PROC: B211YZZ Fluoroscopy of Multiple Coronary Arteries using Other Contrast (ICD-10-PCS; 2018-08-25)
PROC: B215YZZ Fluoroscopy of Left Heart using Other Contrast (ICD-10-PCS; 2018-08-25)
PROC: 4A023N7 Measurement of Cardiac Sampling and Pressure, Left Heart, Percutaneous Approach (ICD-10-PCS; principal; 2018-08-25 09:30)
DX: J18.9 Pneumonia, unspecified organism (principal); I25.10 Atherosclerotic heart disease of native coronary artery without angina pectoris; R09.02 Hypoxemia; J06.9 Acute upper respiratory infection, unspecified; M19.90 Unspecified osteoarthritis, unspecified site; I10 Essential (primary) hypertension; E66.9 Obesity, unspecified; Z68.27 Body mass index [BMI] 27.0-27.9, adult; I44.7 Left bundle-branch block, unspecified; D64.9 Anemia, unspecified; E78.5 Hyperlipidemia, unspecified; R73.03 Prediabetes; J45.909 Unspecified asthma, uncomplicated; Z82.49 Family history of ischemic heart disease and other diseases of the circulatory system
CPT/HCPCS: 36415; 36600; 71045; 71046; 78452; 80048; 80061; 81001; 82550; 82553; 82803; 83036; 83735; 83880; 84100; 84436; 84443; 84479; 84484; 85025; 85610; 87086; 93005; 93017; 93306; 93458; 94640; 94664; 96374; 96375; A9500; A9505; C1887; J0456; J0696; J1644; J1650; J1885; J2250; J2785; J2920; J2930; J3010; J3475; J7030; Q9967

== ENCOUNTER → 2018-11-08 | Outpatient (CLI) | payer OTHER ==
[~2018-11-08] MED LIST changes: +ALBU18HF INHALATION; +ALBUTEROL 0.083% (NEB) 2.5 MG/3 ML AMP ONE; +AMLO-147 PO; +ASPI-1044 PO; +AZIT250T13 PO; +GUAI120S25 PO; +LEVO500T48 PO; -LOSA25TA12 PO; +MED4DP PO; +NIFE30TA2 PO; +NITR0.4T32 SL
== END | disposition home or self-care (01) ==
LOC: PUL 12:29
PROVIDERS: ATTEND Physician Assistant
DX: J44.9 Chronic obstructive pulmonary disease, unspecified (principal)
CPT/HCPCS: 94060; 94664; 94726; 94729; Z7610